=== PATIENT | male | born 1965 | race Caucasian/White ===

== ENCOUNTER → 2024-04-01 06:16 | Day surgery (SDC) | payer OTHER, SELFPAY | LOC: GI 06:16 | PROVIDERS: ATTENDING PHYSICIAN Internal Medicine Gastroenterology | PROC: 0DJD8ZZ Inspection of Lower Intestinal Tract, Via Natural or Artificial Opening Endoscopic (ICD-10-PCS; 2024-04-01) | DX: Z12.11 Encounter for screening for malignant neoplasm of colon (principal); K57.30 Diverticulosis of large intestine without perforation or abscess without bleeding; K64.8 Other hemorrhoids | CPT/HCPCS: G0121 ==

== ENCOUNTER 2025-03-28 06:25 | Day surgery (SDC) | payer OTHER, SELFPAY ==
[2025-03-18 08:42] LABS: Hematocrit 42.4 % (39.0-52.0); Hemoglobin 14.4 g/dL (13.0-18.0); Mean Corp Hgb Conc. 34.0 g/dL (33.0-37.0); Mean Corpuscular Volume 88.0 fL (80.0-94.0); Platelet Count 242 10^3/uL (130-400); Red Cell Dist. Width 12.0 % (11.5-14.5)
[2025-03-18 09:02] LABS: Blood Urea Nitrogen 18 mg/dl (9-20); Calcium 8.9 mg/dl (8.4-10.2); Carbon Dioxide 29 mmol/L (22-30); Chloride 103 mmol/L (98-107); Glucose 99 mg/dl (70-99); Potassium 4.6 mmol/L (3.5-5.1); Sodium 136 mmol/L (135-145); eGFR > 60.00
[2025-03-19 14:48] VITALS: BMI 27.8
[2025-03-28] VITALS (7 sets, daily range): BP systolic 100–151; BP diastolic 71–100; BMI 27.8
[2025-03-28] MEDS: TYLENOL 1000 MG PO (10:25)
[2025-03-28] MEDS: NORMOSOL-R/PLASMALYTE-A 1000 IV (10:27)
== END 2025-03-28 14:25 | disposition home or self-care (01) ==
LOC: SDS 06:25
PROVIDERS: ATTENDING PHYSICIAN Surgery; FAMILY PHYSICIAN Physician Assistant Medical
DX: K40.90 Unilateral inguinal hernia, without obstruction or gangrene, not specified as recurrent (principal); K66.0 Peritoneal adhesions (postprocedural) (postinfection)
CPT/HCPCS: 49650; 80048; 85027; 93005; C1781